=== PATIENT | male | born 1955 ===

== ENCOUNTER → 2024-01-18 15:05 | Outpatient (REF) | payer MEDICARE, SELFPAY ==
[2024-01-18 16:53] LABS: INR 0.99; PT 13.1 Sec (11.4-14.6)
== END ==
LOC: REG 15:05
PROVIDERS: ATTENDING PHYSICIAN Nurse Practitioner; FAMILY PHYSICIAN Internal Medicine
DX: I25.10 Atherosclerotic heart disease of native coronary artery without angina pectoris (principal); Z95.2 Presence of prosthetic heart valve
CPT/HCPCS: 36415; 85610

== ENCOUNTER → 2024-02-15 09:17 | Outpatient (REF) | payer MEDICARE, SELFPAY | LOC: RCS 09:17 | PROVIDERS: ATTENDING PHYSICIAN Nurse Practitioner; FAMILY PHYSICIAN Internal Medicine | DX: I25.10 Atherosclerotic heart disease of native coronary artery without angina pectoris (principal); Z95.2 Presence of prosthetic heart valve | CPT/HCPCS: 93307; Q9957 ==